=== PATIENT | male | born 1985 | race Caucasian/White ===

== ENCOUNTER 2019-08-18 06:56 | Emergency (ER) | payer SELFPAY ==
[~2019-08-18 06:56] MED LIST: Sodium Chloride 0.9% 1,000 ML BAG ONE
[2019-08-18] MEDS ORDERED: Morphine 4 MG/ML VIAL ONE ×3 (07:17→09:29)
[2019-08-18] MEDS ORDERED: Ondansetron PF 4 MG/2 ML Vial ONE (07:17)
[2019-08-18 07:32] LABS: #Basophils 0.1 thou/uL (0.0-0.2); #Eosinphils 0.1 thou/uL (0.0-0.7); #Lymphocytes 1.7 thou/uL (1.20-3.40); #Neutrophils 10.4 thou/uL (1.40-6.50); %Basophils 0.6 % (0.0-1.0); %Eosinophils 0.6 % (0.0-10.0); %Monocytes 7.6 % (0.0-10.0); %Neutrophils 78.2 % (42.0-75.0); Hemoglobin 15.4 g/dL (14.0-18.0); Mean Corpuscular HGB CONC 32.2 g/dL (32.0-36.0); Mean Corpuscular Hemoglobin 27.4 pg (27.0-31.0); Mean Corpuscular Volume 85.2 fL (78.0-98.0); Mean Platelet Volume 7.7 fL (7.4-10.4); Platelet Count 352 thou/uL (130-400); RBC Distribution Width 11.7 % (11.5-14.5); Red Blood Cell (RBC) Count 5.62 mill/uL (4.70-6.10); White Blood Cell (WBC) Count 13.3 thou/uL (4.8-10.8)
[2019-08-18 07:47] LABS: ALT (SGPT) 52 U/L (8-55); AST (SGOT) 24 U/L (5-34); Albumin 4.5 g/dL (3.5-5.0); Alkaline Phosphatase 81 U/L (40-110); Anion Gap 18 mmol/L (10-20); BUN (Urea Nitrogen) 15 mg/dL (8.9-20.6); Bilirubin, Total 0.9 mg/dL (0.2-1.2); Calc. Creatinine Clearance 0 mL/min (70-130); Calcium 9.4 mg/dL (7.8-10.44); Carbon Dioxide 24 mmol/L (22-29); Chloride 97 mmol/L (98-107); Estimated GFR-MDRD 55; Globulin 3.4 g/dL (2.4-3.5); Glucose 113 mg/dL (70-105); Lipase 44 U/L (8-78); Protein, Total 7.9 g/dL (6.0-8.3); Sodium 136 mmol/L (136-145)
--- NOTE | 2019-08-18 07:51 | CT ---
Exam: Abdomen CT without contrast Pelvic CT without contrast HISTORY: Acute right-sided pain, starting yesterday morning. COMPARISON: None FINDINGS: Abdomen CT: Lung bases:Clear Heart size: Normal heart size. No pericardial effusion Aorta: Normal caliber. No periaortic fat stranding Solid organs: Limited evaluation due to lack of IV contrast. No acute abnormality in the visualized s olid organs Lymph nodes: No gastrohepatic, retrocrural or periportal lymphadenopathy Gallbladder: Contracted, likely due to nonfasting state Mesentery: No mass, lymphadenopathy, free air or free fluid Kidneys: Small exophytic hyperdense cyst in the mid left renal cortex measuring 2.7 cm. No evidence o f left-sided obstructive uropathy. Mild right-sided obstructive uropathy secondary to a 3.1 mm calculus in the distal right ureter at the level of the ureterovesicular junction Alimentary canal: Limited evaluation due to lack of IV contrast. No evidence of bowel obstruction. Il eocecal junction is normal. Normal caliber appendix. CT PELVIS: No mass, adenopathy, free air or free fluid. Urinary bladder: No bladder calculi Osseous structures: No lytic or blastic lesions IMPRESSION: Mild right-sided obstructive uropathy secondary to a right ureterovesical juncture calculus.
[2019-08-18] MEDS ORDERED: Tamsulosin HCl 0.4 MG CAP ONE (08:01)
[2019-08-18] MEDS ORDERED: Potassium Chloride 20 MEQ TAB ONE (08:01)
[2019-08-18] MEDS ORDERED: NS 0.9% w/ 20 MEQ KCL 1,000 ML ONE (08:12)
[2019-08-18 09:25] LABS: Bilirubin Negative (Negative); Blood, Urine Moderate (Negative); Clarity Cloudy (Clear); Glucose, Urine (Dipstick) Negative (Negative); Leukocyte Negative (Negative); Nitrite Negative (Negative); Protein, Urine (Dipstick) Negative (Neg-Trace); Urobilinogen 0.2 mg/dL (Less than 2)
[2019-08-18 09:27] LABS: Squamous Epithelial 0-3 HPF (0-3); WBC/HPF 0-3 HPF (0-3)
[2019-08-18 09:28] LABS: Bacteria/HPF 3+ HPF (None Seen)
[2019-08-18] MEDS ORDERED: Ketorolac Tromethamine 30 MG/ML VIAL ONE (09:29)
== END 2019-08-18 10:38 | disposition home or self-care (01) ==
LOC: MADERS 06:56
DX: N20.0 Calculus of kidney (principal); E87.6 Hypokalemia; R11.2 Nausea with vomiting, unspecified; I10 Essential (primary) hypertension; F17.210 Nicotine dependence, cigarettes, uncomplicated
CPT/HCPCS: 74176; 80053; 81001; 83605; 83690; 85025; 96365; 96366; 96375; 96376; J1885; J2270; J2405; J3480; J7050